=== PATIENT | female | born 1930 | race African-American/Black ===

== ENCOUNTER 2019-10-12 11:38 | Inpatient (IN) | payer OTHER ==
[2019-10-12 12:34] LABS: Basophils % 0.2 % (0-1.3); Lymphocytes % 11.6 % (15.3-44.8); MPV 8.7 fL (7.6-11.3); RBC Red Blood Cell Count 2.68 M/uL (3.86-4.86)
[2019-10-12 12:40] LABS: Protime INR 3.43
[2019-10-12 12:43] LABS: Hematocrit 15.5 % (36.0-45.0)
--- NOTE | 2019-10-12 12:50 | RAD REPORT ---
EXAM DESCRIPTION: RAD - Chest Single View - 10/12/2019 12:36 pm CLINICAL HISTORY: COUGH, leg pain and swelling COMPARISON: Two view chest June 17, 2019 TECHNIQUE: AP portable chest image was obtained 10/12/2019 12:36 pm . FINDINGS: Normal volume for portable imaging. Patient has a diffusely prominent interstitial pattern as a baseline. This is increased slightly from the comparison even when adjusting for portable versu s PA technique. Right pleural effusion and right base atelectasis are again noted. Cardiomegaly is pr esent. Vasculature is mildly prominent. No measurable pleural effusion and no pneumothorax. No acute bony abnormality seen. No acute aortic findings suspected. IMPRESSION: Chest findings suggest a mild failure or volume overload.
[2019-10-12 12:54] LABS: Albumin 2.6 g/dL (3.4-5.0); Bilirubin Total 1.6 mg/dL (0.2-1.0); Magnesium 2.2 mg/dL (1.8-2.4); Protein, Total 6.3 g/dL (6.4-8.2); Troponin (Emerg Dept Use Only) 0.07 ng/mL (0.0-0.045)
[2019-10-12 13:05] LABS: Anisocytosis 2+; Blood Morphology Comment NOTED (NOT SEEN); Platelet Estimate ADEQ; Urine White Blood Cell Casts OK
[2019-10-12 13:06] LABS: Hypochromasia 3+
[2019-10-12] MEDS ORDERED: PANTOPRAZOLE 40 MG INJ ONE ×2 (13:44→23:41)
[2019-10-12] MEDS ORDERED: PANTOPRAZOLE INJ 80 MG in NA CHLORIDE 0.9% 250 ML IV SCH (14:00)
[2019-10-12] MEDS: PANTOPRAZOLE INJ 80 MG in NA CHLORIDE 0.9% 250 ML IV SCH ×2 (14:00→23:41)
--- NOTE | 2019-10-12 14:12 | RAD REPORT ---
EXAM DESCRIPTION: US - Lower Extremity Arterial Bilat - 10/12/2019 1:31 pm CLINICAL HISTORY: PAIN, left leg pain COMPARISON: None. TECHNIQUE: Waveforms were obtained along the length of each lower extremity. Visual inspection of th e lower extremity arterial tree performed. FINDINGS: A dampened monophasic to biphasic waveform pattern was seen in the right common femoral ar rose marie. No blood flow was identifiable in the right superficial femoral artery stents and bypass. No ri ght popliteal artery blood flow was identifiable. No right posterior tibial artery blood flow could b e demonstrated. A significantly dampened monophasic waveform was identifiable in the right dorsalis p teresa artery. Dampened, monophasic left common femoral artery blood flow was seen. The left superficial femoral art kishor stent appears occluded as well with no blood flow identifiable. No left popliteal artery blood fl ow could be demonstrated. No dorsalis pedis or posterior tibial artery blood flow could be seen. IMPRESSION: Patient has substantially compromised lower extremity blood flow pattern. Bilateral dampened common femoral artery waveforms were identifiable. The bilateral superficial femor al, popliteal and posterior tibial arteries show no identifiable blood flow. Minimal blood flow seen in the right dorsalis pedis artery with no blood flow in the left dorsalis pedis demonstrated.
--- NOTE | 2019-10-12 14:23 | RAD REPORT ---
EXAM DESCRIPTION: CT - Abdomen Pelvis Wo Contrast - 10/12/2019 1:55 pm CLINICAL HISTORY: Abd pain;Pain Leg pain, history of left nephrectomy and arterial bypass COMPARISON: CT ABD PELVIS W CONTRAST dated 03/19/2013 TECHNIQUE: Axial [address] imaging of the abdomen and pelvis was performed without IV contrast. No IV contrast was given because of allergy, abnormal renal function, patient refusal or physician re quest. Oral contrast was given. All CT scans are performed using dose optimization technique as appropriate and may include automated exposure control or mA/KV adjustment according to patient size. FINDINGS: Moderate-size right pleural effusion is present only partially visualized. Heart size is u pper normal. No pericardial effusion. The liver, spleen and pancreas show no suspicious findings on non-contrast imaging. Multiple small ga llstones are present in a nondilated gallbladder. No biliary tree dilatation. No active gallbladder p rocess identifiable. No hydronephrosis or obstructing calculus of the right kidney. Assessment is limited in the absence o f IV contrast. No gross change from 2013. Left kidney has been resected since the prior study. No si gnificant adrenal finding. Isodense renal masses and pyelonephritis cannot be excluded in the absence of IV contrast. Partially filled urinary bladder shows no suspicious findings. Pelvic floor laxity i s present. No uterus or ovarian primary process identifiable. No gastric dilatation or wall thickening. No dilated small bowel. No appendicitis findings. Colon is distended 8 cm in the rectum. No wall thickening or mass. Left-sided diverticulosis present without d iverticulitis. No free air or pneumatosis. Stranding near the left nephrectomy site is not unexpected. Patient has significant fluid retention in the subcutaneous fatty tissues of the pelvis and lower abdomen. No he rnia, mass or bulky lymphadenopathy. Bony degenerative changes are present without an acute finding. Vascular assessment is limited in the absence of IV contrast. Aortobifemoral bypass is present. This cannot be assessed for patency due to the absence of contrast. Right-sided arterial stent and bypass are present at the right ENVIRONMENTAL SCIENCE PROFESSOR SFA junction. Both were shown to be occluded on separately reported ultr asound. The bypass is compressed within effaced lumen proximally. Left SFA stent was shown by sonogra phy to be occluded. IMPRESSION: Substantial vascular disease only partially assessed on this study. Patient has aortobif emoral bypass, bilateral SFA stents and a right SFA bypass. The leg vasculature was shown to be occlu ded or have highly restricted flow at sonography. The aortobifemoral bypass cannot be assessed in the absence of contrast. Significant fluid retention in the subcutaneous fatty tissues of the pelvis and lower abdomen. No surgically emergent finding to the solid abdominal visceral or bowel. Nonacute findings are detail ed in the body of the report. Moderate right-sided pleural effusion. Full assessment is limited is the absence of IV contrast.
--- OUTSIDE RECORDS SUMMARY | 2019-10-12 14:44 | XMS REPORT ---
:1930 Author Organization [facility] Address [address] [place] [address] Care Team Providers Name Role Phone Unavailable Unavailable Unavailable Problems This patient has no known problems. Allergies, Adverse Reactions, Alerts This patient has no known allergies or adverse reactions. Medications This patient has no known medications. Encounters Start End Encounter Admission Attending Care Care Encounter Date/Time Date/Time Type Type Clinicians Facility Department ID 2019-01-18 Outpatient [facility] [place] [id number] 16:10:34
--- NOTE | 2019-10-12 14:52 | ER ---
Nurse's Notes [facility] Name: Niharika Raymond Age: 89 yrs Sex: Female : 1930 Arrival Date: 10/12/2019 Time: 11:40 Bed 14 Private MD: Kaleb Soto V Diagnosis: Peripheral vascular disease, unspecified-bilateral extremities;Anemia, unspecified;Hypokalemia;Unspecified kidney failure;Unspecified combined systolic (congestive) and diastolic (congestive) heart failure;Pleural effusion in conditions classified elsewhere;Urinary tract infection, site not specified;Elevated white blood cell count Presentation: 10/11 11:35 Chief complaint: EMS states: Pt. 89 yrs. old c/o left leg pain. A \T\ O x 4. Edema noted rb1 to bilateral legs. History of CVA, left nephrectomy. Allergic to Lipitor. BS 143. Pt. took 2 Aleve two to three hours ago. EMS reports that pt. daughter reported that she has an ulcer on the left leg. Pt. lives in [place] [facility] [facility]. Coronavirus screen: Patient denies fever greater than 100.4F, cough, shortness of breath, or difficulty breathing. Ebola Screen: Patient negative for fever greater than or equal to 101.5 degrees Fahrenheit, and additional compatible Ebola Virus Disease symptoms. Initial Sepsis Screen: Does the patient meet any 2 criteria? No. Patient's initial sepsis screen is negative. Does the patient have a suspected source of infection? No. Patient's initial sepsis screen is negative. Risk Assessment: Do you want to hurt yourself or someone else? Patient reports no desire to harm self or others. 11:35 Method Of Arrival: EMS rb1 11:35 Acuity: LORETTA 3 rb1 Triage Assessment: 11:35 General: Appears in no apparent distress. comfortable, Behavior is calm, cooperative, rb1 Denies fever. Pain: Complains of pain in left leg Pain currently is 10 out of 10 on a pain scale. Pain began last night. Neuro: Level of Consciousness is awake, alert, obeys commands, Oriented to person, place, time, situation. Cardiovascular: Capillary refill < 3 seconds is brisk in bilateral fingers. Respiratory: Airway is patent Respiratory effort is even, unlabored, Respiratory pattern is regular, symmetrical. GI: No signs and/or symptoms were reported involving the gastrointestinal system. : No signs and/or symptoms were reported regarding the genitourinary system. Derm: Skin is dry, Skin is normal, Skin temperature is warm. Musculoskeletal: Swelling present in right leg and left leg. Historical: - Allergies: 11:35 Lipitor; rb1 - Home Meds: 11:35 hydralazine 100 mg Oral tab 1 tab 2 times per day [Active]; rosuvastatin 10 mg oral tab rb1 1 tab once daily [Active]; Xarelto 20 mg oral tab 1 tab once daily [Active]; furosemide 40 mg Oral tab 1 tab once daily [Active]; losartan 100 mg oral tab 1 tab once daily [Active]; metoprolol tartrate 50 mg Oral tab 1 tab once daily [Active]; - PMHx: 11:35 CVA; rb1 11:35 COPD; DVT; rb1 - PSHx: 11:35 kidney removal left; bypass; Tubal ligation; rb1 11:35 Thyroid surgery; stents in legs; rb1 - Immunization history:: Adult Immunizations up to date. - Social history:: Smoking status: Patient/guardian denies using. - Family history:: not pertinent. Screenin:35 Abuse screen: Denies threats or abuse. Nutritional screening: No deficits noted. rb1 Tuberculosis screening: No symptoms or risk factors identified. Fall Risk None identified. Assessment: 11:35 General: See triage assessment. rb1 14:31 Reassessment: Patient appears in no apparent distress at this time. Patient and/or rb1 family updated on plan of care and expected duration. Pain level reassessed. Patient is alert, oriented x 3, equal unlabored respirations, skin warm/dry/pink. 15:30 Reassessment: Patient appears in no apparent distress at this time. No changes from rb1 previously documented assessment. Pt. is laughing and joking with us. Call light within reach. 16:00 Reassessment: Initiated blood transfusion. rb1 16:25 Reassessment: Patient appears in no apparent distress at this time. Pt. denies chest rb1 pain, SOB, back pain, and itching. 16:50 Reassessment: Spoke with Shara, pt. daughter, via telephone at [phone]. She has rb1 POA, update her on the POC. Daughter verbalized understanding. 17:17 Reassessment: Patient appears in no apparent distress at this time. Patient and/or rb1 family updated on plan of care and expected duration. Pain level reassessed. Patient is alert, oriented x 3, equal unlabored respirations, skin warm/dry/pink. 17:42 Reassessment: Tried to call second floor, there was no answer. rb1 17:43 Reassessment: Tried to call ext. 1221 to give report, there was no answer. rb1 17:45 Reassessment: Called ext. 1241 to give report and there was no answer. rb1 17:46 Reassessment: Spoke to BETSY Lu on second floor, unable to give report at this time rb1 because she does not know who is getting the pt. She requested that I give her some time. 18:14 Reassessment: Patient appears in no apparent distress at this time. Patient and/or rb1 family updated on plan of care and expected duration. Pain level reassessed. Patient is alert, oriented x 3, equal unlabored respirations, skin warm/dry/pink. Pt. reports feeling better since receiving the blood. 18:17 Reassessment: Tried to call report, spoke to BETSY Lu, unable to give report at this rb1 time. Was told that HERRERA would call me back. 18:28 Reassessment: Gave report to BETSY SILVERMAN. Information from the SBAR was given. Informed him rb1 that the Potassium and Protonix drips would be sent to the floor with the pt, and the first unit of PRBC's would be finished before the pt. comes to the floor, but the pt. would be receiving two additional units of PRBC's. Verbalized understanding. Vital Signs: 11:35 BP 133 / 81; Pulse 70; Resp 17; Temp 98.4; Pulse Ox 98% on R/A; Weight 73.48 kg (R); rb1 Height 5 ft. 5 in. (165.10 cm) (R); Pain 10/10; 12:35 BP 129 / 69; Pulse 100; Resp 18; Pulse Ox 95% on R/A; rb1 14:33 BP 117 / 86; Pulse 91; Resp 17; Pulse Ox 99% on R/A; rb1 15:30 BP 118 / 56; Pulse 84; Resp 19; Pulse Ox 100% on R/A; rb1 15:55 BP 123 / 70; Pulse 90; Resp 19; Temp 98.2(TE); Pulse Ox 95% on R/A; rb1 16:05 BP 134 / 56; Pulse 78; Resp 19; Temp 98.2(TE); Pulse Ox 96% on R/A; Pain 0/10; rb1 16:10 BP 128 / 76; Pulse 92; Resp 18; Temp 98.2(TE); Pulse Ox 96% on R/A; rb1 16:15 BP 111 / 70; Pulse 89; Resp 17; Temp 98.2(TE); Pulse Ox 98% on R/A; Pain 0/10; rb1 17:15 BP 137 / 88; Pulse 90; Resp 14; Temp 98.0(TE); Pulse Ox 99% on R/A; rb1 18:15 BP 139 / 79; Pulse 101; Resp 20; Temp 98.0; Pulse Ox 98% on R/A; rb1 11:35 Body Mass Index 26.96 (73.48 kg, 165.10 cm) rb1 ED Course: 11:35 Arm band placed on right wrist. rb1 11:35 Patient has correct armband on for positive identification. Placed in gown. Bed in low rb1 position. Call light in reach. Side rails up X2. accounts receivable bookkeeper on. Pulse ox on. NIBP on. Warm blanket given. 11:40 Patient arrived in ED. bd 11:41 Tonio Graf MD is Attending Physician. arlene 11:43 Anum Jonas, RN is Primary Nurse. rb1 11:48 Triage completed. rb1 12:15 Missed attempt(s): 22 gauge in right antecubital area. kj1 12:24 Inserted saline lock: 22 gauge in left forearm, using aseptic technique. ,using aseptic kj1 technique. IV BY DERRELL WOODARD CHARGE NURSE Blood collected. 12:36 XRAY Chest (1 view) In Process Unspecified. EDMS 13:45 US LE Arterial Bilateral In Process Unspecified. EDMS 14:01 CT Abd/Pelvis - Without Contrast In Process Unspecified. EDMS 14:30 Urine collected: Santana catheter specimen, cloudy. kj1 14:48 Kaleb Soto MD is Hospitalizing Provider. arlene 15:24 Inserted saline lock: 22 gauge in left EJ, using aseptic technique. ,using aseptic rb1 technique. Inserted by Dr. Graf. Pt. tolerated well. 15:38 Kaleb Soto MD is Private Physician. am2 18:49 No provider procedures requiring assistance completed. Patient admitted, IV remains in rb1 place. Administered Medications: 14:19 Drug: ProTONIX 80 mg Route: IVP; Site: left forearm; rb1 14:30 Follow up: Response: No adverse reaction rb1 14:20 Drug: ProTONIX 8 mg/hr Route: IV; Rate: 25 ml/hr; Site: left forearm; rb1 14:30 Drug: Lasix 20 mg Route: IVP; Site: left forearm; rb1 14:45 Follow up: Response: No adverse reaction rb1 15:30 Drug: Zosyn 3.375 grams Route: IVPB; Infused Over: 60 mins; Site: left jugular; rb1 18:21 Drug: Potassium Chloride 20 mEq {Note: had to wait for an IV site to be available. Dr. stephenie Graf said to stop the Protonix drip and give the Potassium.} Route: IV; Rate: per protocol; Site: left forearm; Outcome: 14:51 Decision to Hospitalize by Provider. [facility] 18:49 Patient left the ED. rb1 18:49 Admitted to Med/surg accompanied by tech, via stretcher, room 214, with chart, Report rb1 called to BETSY SILVERMAN 18:49 Condition: stable 18:49 Instructed on the need for admit. Signatures: Dispatcher [employer] EDMS Ella Paz Corey, MD MD cha Barber, Rebecca, RN RN rb1 Jazmín Solorio am2 Natalya Franz kj1 Corrections: (The following items were deleted from the chart) 12:40 12:24 Inserted saline lock: 22 gauge in left forearm, using aseptic technique. Blood kj1 collected. kj1 12:41 12:24 Inserted saline lock: 22 gauge in left forearm, using aseptic technique. Blood kj1 collected. kj1 17:59 17:15 BP 137 / 88; Pulse 90bpm; Resp 14bpm; Pulse Ox 99% RA; rb1 rb1 19:05 18:55 Patient left the ED. rb1 rb1
--- NOTE | 2019-10-12 14:52 | EDPHYS ---
Physician Documentation [facility] Name: Niharika Raymond Age: 89 yrs Sex: Female : 1930 Arrival Date: 10/12/2019 Time: 11:40 Bed 14 Private MD: Kaleb Soto V ED Physician Tonio Graf HPI: 10/11 12:53 This 89 yrs old Black Female presents to ER via EMS with complaints of Leg Pain. arlene 12:56 The patient presents with decreased range of motion, pain. The complaints affect the arlene lateral aspect of left calf, left lateral ankle, lateral aspect of left foot, left morfin, anterior aspect of left ankle and dorsum of left foot. Context: The problem was sustained at an unknown site, resulted from an unknown cause. Associated signs and symptoms: The patient has no apparent associated signs or symptoms. Severity of symptoms: At their worst the symptoms were moderate, in the emergency department the symptoms are unchanged. Historical: - Allergies: 11:35 Lipitor; rb1 - Home Meds: 11:35 hydralazine 100 mg Oral tab 1 tab 2 times per day [Active]; rosuvastatin 10 mg oral tab rb1 1 tab once daily [Active]; Xarelto 20 mg oral tab 1 tab once daily [Active]; furosemide 40 mg Oral tab 1 tab once daily [Active]; losartan 100 mg oral tab 1 tab once daily [Active]; metoprolol tartrate 50 mg Oral tab 1 tab once daily [Active]; - PMHx: 11:35 CVA; rb1 11:35 COPD; DVT; rb1 - PSHx: 11:35 kidney removal left; bypass; Tubal ligation; rb1 11:35 Thyroid surgery; stents in legs; rb1 - Immunization history:: Adult Immunizations up to date. - Social history:: Smoking status: Patient/guardian denies using. - Family history:: not pertinent. ROS: 12:56 Constitutional: Negative for fever, chills, and weight loss, Eyes: Negative for injury, arlene pain, redness, and discharge, ENT: Negative for injury, pain, and discharge, Neck: Negative for injury, pain, and swelling, Cardiovascular: Negative for chest pain, palpitations, and edema, Respiratory: Negative for shortness of breath, cough, wheezing, and pleuritic chest pain, Abdomen/GI: Negative for abdominal pain, nausea, vomiting, diarrhea, and constipation, Back: Negative for injury and pain, : Negative for injury, bleeding, discharge, and swelling, Psych: Negative for depression, anxiety, suicide ideation, homicidal ideation, and hallucinations, Allergy/Immunology: Negative for hives, rash, and allergies, Endocrine: Negative for neck swelling, polydipsia, polyuria, polyphagia, and marked weight changes, Hematologic/Lymphatic: Negative for swollen nodes, abnormal bleeding, and unusual bruising. 12:56 Eyes: Positive for 12:56 MS/extremity: Positive for decreased range of motion, pain, swelling, of the right leg and left leg. 12:56 Skin: Positive for pallor. Exam: 12:59 Constitutional: This is a well developed, well nourished patient who is awake, alert, arlene and in no acute distress. Head/Face: Normocephalic, atraumatic. ENT: Nares patent. No nasal discharge, no septal abnormalities noted. Tympanic membranes are normal and external auditory canals are clear. Oropharynx with no redness, swelling, or masses, exudates, or evidence of obstruction, uvula midline. Mucous membranes moist. Neck: Trachea midline, no thyromegaly or masses palpated, and no cervical lymphadenopathy. Supple, full range of motion without nuchal rigidity, or vertebral point tenderness. No Meningismus. Chest/axilla: Normal chest wall appearance and motion. Nontender with no deformity. No lesions are appreciated. Cardiovascular: Regular rate and rhythm with a normal S1 and S2. No gallops, murmurs, or rubs. Normal PMI, no JVD. No pulse deficits. Respiratory: Lungs have equal breath sounds bilaterally, clear to auscultation and percussion. No rales, rhonchi or wheezes noted. No increased work of breathing, no retractions or nasal flaring. Abdomen/GI: Soft, non-tender, with normal bowel sounds. No distension or tympany. No guarding or rebound. No evidence of tenderness throughout. Back: No spinal tenderness. No costovertebral tenderness. Full range of motion. Skin: Warm, dry with normal turgor. Normal color with no rashes, no lesions, and no evidence of cellulitis. MS/ Extremity: Pulses equal, no cyanosis. Neurovascular intact. Full, normal range of motion. Neuro: Awake and alert, GCS 15, oriented to person, place, time, and situation. Cranial nerves II-XII grossly intact. Motor strength 5/5 in all extremities. Sensory grossly intact. Cerebellar exam normal. Normal gait. Psych: Awake, alert, with orientation to person, place and time. Behavior, mood, and affect are within normal limits. 12:59 Eyes: Conjunctiva: pale. 12:59 Musculoskeletal/extremity: ROM: limited active range of motion, limited passive range of motion, Compartment Syndrome exam of affected extremity: is normal. DVT Exam: negative Homans' sign noted on exam, no appreciated bluish discoloration, no erythema, no increased warmth, pain, swelling, tenderness. Vital Signs: 11:35 BP 133 / 81; Pulse 70; Resp 17; Temp 98.4; Pulse Ox 98% on R/A; Weight 73.48 kg (R); rb1 Height 5 ft. 5 in. (165.10 cm) (R); Pain 10/10; 12:35 BP 129 / 69; Pulse 100; Resp 18; Pulse Ox 95% on R/A; rb1 14:33 BP 117 / 86; Pulse 91; Resp 17; Pulse Ox 99% on R/A; rb1 15:30 BP 118 / 56; Pulse 84; Resp 19; Pulse Ox 100% on R/A; rb1 15:55 BP 123 / 70; Pulse 90; Resp 19; Temp 98.2(TE); Pulse Ox 95% on R/A; rb1 16:05 BP 134 / 56; Pulse 78; Resp 19; Temp 98.2(TE); Pulse Ox 96% on R/A; Pain 0/10; rb1 16:10 BP 128 / 76; Pulse 92; Resp 18; Temp 98.2(TE); Pulse Ox 96% on R/A; rb1 16:15 BP 111 / 70; Pulse 89; Resp 17; Temp 98.2(TE); Pulse Ox 98% on R/A; Pain 0/10; rb1 17:15 BP 137 / 88; Pulse 90; Resp 14; Temp 98.0(TE); Pulse Ox 99% on R/A; rb1 18:15 BP 139 / 79; Pulse 101; Resp 20; Temp 98.0; Pulse Ox 98% on R/A; rb1 11:35 Body Mass Index 26.96 (73.48 kg, 165.10 cm) rb1 MDM: 11:41 Patient medically screened. [facility] 13:00 Data reviewed: vital signs, nurses notes, lab test result(s), EKG, radiologic studies, arlene doppler, plain films. 10/11 12:09 Order name: Basic Metabolic Panel; Complete Time: 13:37 [facility] 10/11 12:09 Order name: CBC with Diff; Complete Time: 13:37 [facility] 10/11 12:09 Order name: LFT's; Complete Time: 13:37 [facility] 10/11 12:09 Order name: Magnesium; Complete Time: 13:37 [facility] 10/11 12:09 Order name: NT PRO-BNP; Complete Time: 13:37 [facility] 10/11 12:09 Order name: PT-INR; Complete Time: 12:52 [facility] 10/11 12:09 Order name: Troponin (emerg Dept Use Only); Complete Time: 13:37 [facility] 10/11 12:09 Order name: Urine Culture [facility] 10/11 12:09 Order name: Lipase; Complete Time: 13:37 [facility] 10/11 12:44 Order name: CBC Smear Scan; Complete Time: 13:37 [facility] 10/11 12:46 Order name: Type And Screen [facility] 10/11 12:52 Order name: Procalcitonin; Complete Time: 14:03 [facility] 10/11 14:41 Order name: Urine Dipstick--Ancillary (enter results) 10/11 15:03 Order name: Bb Add On bd 10/11 12:09 Order name: XRAY Chest (1 view) [facility] 10/11 12:09 Order name: EKG; Complete Time: 12:11 [facility] 10/11 12:09 Order name: Cardiac monitoring; Complete Time: 16:33 [facility] 10/11 12:09 Order name: EKG - Nurse/Tech; Complete Time: 16:33 [facility] 10/11 12:09 Order name: IV Saline Lock; Complete Time: 16:33 [facility] 10/11 12:09 Order name: Labs collected and sent; Complete Time: 16:33 [facility] 10/11 12:52 Order name: US LE Arterial Bilateral [facility] 10/11 13:39 Order name: CT Abd/Pelvis - Without Contrast [facility] 10/11 15:14 Order name: CONS Physician Consult [facility] 10/11 15:14 Order name: CONS Physician Consult [facility] 10/11 15:15 Order name: Packed RBCs (Additional Unit) [facility] 10/11 12:09 Order name: O2 Per Protocol; Complete Time: 16:33 [facility] 10/11 12:09 Order name: O2 Sat Monitoring; Complete Time: 16:33 [facility] 10/11 12:09 Order name: Urine Dipstick-Ancillary (obtain specimen); Complete Time: 16:33 [facility] 10/11 12:46 Order name: Transfuse; Complete Time: 16:33 [facility] 10/11 13:00 Order name: Wound Care; Complete Time: 14:22 [facility] 10/11 13:39 Order name: Santana; Complete Time: 14:30 [facility] Administered Medications: 14:19 Drug: ProTONIX 80 mg Route: IVP; Site: left forearm; rb1 14:30 Follow up: Response: No adverse reaction rb1 14:20 Drug: ProTONIX 8 mg/hr Route: IV; Rate: 25 ml/hr; Site: left forearm; rb1 14:30 Drug: Lasix 20 mg Route: IVP; Site: left forearm; rb1 14:45 Follow up: Response: No adverse reaction rb1 15:30 Drug: Zosyn 3.375 grams Route: IVPB; Infused Over: 60 mins; Site: left jugular; rb1 18:21 Drug: Potassium Chloride 20 mEq {Note: had to wait for an IV site to be available. Dr. stephenie Graf said to stop the Protonix drip and give the Potassium.} Route: IV; Rate: per protocol; Site: left forearm; Disposition: 10/12/19 14:51 Hospitalization ordered by Kaleb Soto for Inpatient Admission. Preliminary diagnosis are Peripheral vascular disease, unspecified - bilateral extremities, Anemia, unspecified, Hypokalemia, Unspecified kidney failure, Unspecified combined systolic (congestive) and diastolic (congestive) heart failure, Pleural effusion in conditions classified elsewhere, Urinary tract infection, site not specified, Elevated white blood cell count. - Bed requested for Telemetry/MedSurg (Inpatient). - Status is Inpatient Admission. rb1 - Condition is Fair. - Problem is new. - Symptoms have improved. Signatures: Dispatcher [employer] [facility] Ella Paz Corey, MD MD cha Barber, Rebecca, RN RN rb1 Corrections: (The following items were deleted from the chart) 17:30 14:51 Hospitalization Ordered by Kaleb Soto MD for Inpatient Admission. Preliminary bd diagnosis is Peripheral vascular disease, unspecified - bilateral extremities; Anemia, unspecified; Hypokalemia; Unspecified kidney failure; Unspecified combined systolic (congestive) and diastolic (congestive) heart failure; Pleural effusion in conditions classified elsewhere; Urinary tract infection, site not specified; Elevated white blood cell count. Bed requested for Telemetry/MedSurg (Inpatient). Status is Inpatient Admission. Condition is Fair. Problem is new. Symptoms have improved. arlene 18:55 17:30 10/12/2019 14:51 Hospitalization Ordered by Kaleb Soto MD for Inpatient rb1 Admission. Preliminary diagnosis is Peripheral vascular disease, unspecified - bilateral extremities; Anemia, unspecified; Hypokalemia; Unspecified kidney failure; Unspecified combined systolic (congestive) and diastolic (congestive) heart failure; Pleural effusion in conditions classified elsewhere; Urinary tract infection, site not specified; Elevated white blood cell count. Bed requested for Telemetry/MedSurg (Inpatient). Status is Inpatient Admission. Condition is Fair. Problem is new. Symptoms have improved. bd
[2019-10-12] MEDS ORDERED: FUROSEMIDE 20 MG/ 2ML VIAL ONE (15:24)
[2019-10-12] MEDS ORDERED: PIPER/TAZO/NS 3.375gm 3.375 GM/100 ML BAG ONE ×2 (15:24)
[2019-10-12] MEDS ORDERED: NA CHLORIDE 0.9% 250 ML ONE ×4 (15:48→23:41)
[2019-10-12] MEDS: PIPER/TAZO/NS 3.375gm 3.375 GM/100 ML BAG IVPB SCH (17:00)
[2019-10-12] MEDS ORDERED: KCL 20 MEQ/100 mL IVPB 20 MEQ/100 ML BAG IV ONE (18:25)
[2019-10-12] MEDS ORDERED: IPRATROPIUM BROM 0.5MG/2.5ML NEB PRN (19:46)
[2019-10-12] MEDS ORDERED: ONDANSETRON 4 MG/2 ML VIAL IV PRN (19:46)
[2019-10-12] MEDS ORDERED: ALBUTEROL 2.5 MG/3 ML NEB SOL NEB PRN (19:46)
[2019-10-12] MEDS ORDERED: ACETAMINOPHEN 500 MG TAB PO PRN (19:46)
[2019-10-12] MEDS ORDERED: FUROSEMIDE 20 MG/ 2ML VIAL IV SCH (20:00)
[2019-10-12] MEDS: MORPHINE 4 MG/ML SYR IV PRN (20:48)
--- NOTE | 2019-10-12 21:39 | P.HP ---
Certification for Inpatient Patient admitted to: Inpatient With expected LOS: >2 Midnights Practitioner: I am a practitioner with admitting privileges, knowledge of patient current condition, hospital course, and medical plan of care. Services: Services provided to patient in accordance with Admission requirements found in Title 42 Section 412.3 of the Code of Federal Regulations Patient History Date of Service: 10/12/19 Reason for admission: SEVERE WEAKNES History of Present Illness: MS HOLLINS HAS HAD WEAKNESS. WE ASKED FOR LAB IN JULY BUT SHE DID NOT DO. I ORDERED HOME HEALTH SHE WAS GETTIG WEAKER, THEY TRIED TO DO LAB I ORDERED BUT WERE NOT ABLE TO SHE WAS DEYDRATED, PATIENT WAS SENT TO ER AND FOUND TO HAVE HG OF 3.8 GM. SHE HAS BEEN ON XARELTO FOR DVT BUT HAS NOT DONE LAB LIKE ASKED TO DO. 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 SHE HAS PAIN FUL ULCER IN THE POSTERIOR PART OF L LE. Allergies atorvastatin calcium [From Lipitor] Adverse Reaction (Intermediate, Verified 19:24) ACHY, SWELLING Home Medications: Metoprolol Tartrate [Lopressor*] 50 mg PO DAILY 03/20/13 Furosemide [Lasix] 40 mg PO DAILY 03/11/18 Hydralazine HCl [Apresoline] 100 mg PO BID 03/11/18 Rosuvastatin Calcium [Crestor] 10 mg PO DAILY 03/11/18 Losartan Potassium 1 tab PO DAILY 10/12/19 Rivaroxaban [Xarelto] 1 tab PO DAILY 10/12/19 - Past Medical/Surgical History Has patient received pneumonia vaccine in the past: Yes Diabetic: No -: CVA -: HTN -: Hypothyroidism -: AFIB -: bilateral stents in legs -: Left Kidney removed 1979 -: bypass -: tonsillectomy -: tubal ligation - Family History Mother -: Other (see notes) Notes: heart attack - Social History Smoking Status: Never smoker Alcohol use: No CD- Drugs: No Caffeine use: Yes Place of Residence: Home Review of Systems 10-point ROS is otherwise unremarkable General: Weakness, Malaise Physical Examination - Vital Signs Temperature: 98.1 F Blood Pressure: 137/78 Pulse: 79 Respirations: 18 Pulse Ox (%): 94 - Physical Exam General: Alert, Cachectic, Moderate distress, Other (PALLOR) HEENT: Atraumatic, PERRLA, Mucous membr. moist/pink, EOMI, Sclerae nonicteric Neck: Supple, 2+ carotid pulse no bruit, No LAD, Without JVD or thyroid abnormality Respiratory: Clear to auscultation bilaterally, Normal air movement Cardiovascular: Abnormal pulses Gastrointestinal: Normal bowel sounds, No tenderness Musculoskeletal: No tenderness Integumentary: Arterial ulcer (L POSTERIOR LEG. NO INFECTION BUT DENUDED SKIN.) Neurological: Normal gait, Normal speech, Normal strength at 5/5 x4 extr, Normal tone, Normal affect Lymphatics: No axilla or inguinal lymphadenopathy - Studies Laboratory Data (last 24 hrs) 10/12/19 12:24: PT 39.5 H, INR 3.43 10/12/19 12:24: WBC 17.4 H, Hgb 3.9 L*, Hct 15.5 L*, Plt Count 283 10/12/19 12:24: Sodium 141, Potassium 3.0 L, BUN 47 H, Creatinine 1.49 H, Glucose 133 H, Magnesium 2.2, Total Bilirubin 1.6 H, AST 45 H, ALT 35, Alkaline Phosphatase 126 H, Lipase 104 Assessment and Plan - Problems (Diagnosis) (1) Anemia Current Visit: Yes Status: Acute Plan: SEVERE ANEMIA. 3 UNITS OF PACKED RBC. GOAL IS UP TO 7 GM. CONSULT GI . PAU CRISOSTOMO. THIS WAS GIVEN TO HER BY DOCTORS IN [place]. (2) Atherosclerosis of [place] arteries of right leg with ulceration of other part of foot Current Visit: No Status: Chronic Plan: SEVERE VASCUALR DAMAGE FROM HEAVY SMOKING. PVD ALL BELOW WAIST. MULTIPLE STENTS AND FEMPOP BYPASS. UNFORTUNATELY INCURABLE CODITION. IT IS TIME FOR COMFORT CARE. - Advance Directives Does patient have a Living Will: No Does patient have a Durable POA for Healthcare: Yes
[2019-10-12] MEDS: HYDRALAZINE HCL 25 MG TABLET PO SCH (23:40)
[2019-10-13] MEDS: PIPER/TAZO/NS 3.375gm 3.375 GM/100 ML BAG IVPB SCH ×3 (00:48→18:02)
[2019-10-13] MEDS ORDERED: PIPERACIL/TAZO 3.375 GM VIAL IV ONE (00:48)
[2019-10-13] MEDS ORDERED: NA CHLORIDE 0.9% 100 ML ONE ×2 (00:51→01:46)
[2019-10-13] MEDS ORDERED: NA CHLORIDE 0.9% 250 ML ONE (02:00)
[2019-10-13 07:59] LABS: Absolute Lymphocytes (CBC) 1.8 K/uL (0.7-4.9); Basophils % 0.1 % (0-1.3); Hematocrit 29.3 % (36.0-45.0); Lymphocytes % 12.4 % (15.3-44.8); MPV 8.8 fL (7.6-11.3); RBC Red Blood Cell Count 4.25 M/uL (3.86-4.86)
[2019-10-13 08:20] LABS: Potassium 2.8 mmol/L (3.5-5.1)
--- NOTE | 2019-10-13 08:35 | RAD REPORT ---
EXAM DESCRIPTION: RAD - Chest Single View - 10/13/2019 6:56 am CLINICAL HISTORY: Chest Pain Chest pain. COMPARISON: Chest Single View dated 10/12/2019; Chest Pa And Lat (2 Views) dated 06/17/2019; CHEST PA AND LAT 2 VIEW dated 12/15/2013; CHEST SINGLE VIEW dated 11/12/2013; Abdomen Pelvis Wo Contrast dated FINDINGS: Portable technique limits examination quality. Small bilateral pleural effusions are present, slightly greater the right. Mild opacity in the right lung base may represent atelectasis or infiltrate. The heart is mildly enlarged in size. Aortic ather osclerosis noted. IMPRESSION: Slight increase in right basilar lung opacity since comparative study probably represent ing infiltrate or atelectasis.
[2019-10-13] MEDS: KCL 20 MEQ/100 mL IVPB 20 MEQ/100 ML BAG IV SCH ×3 (08:49→13:02)
[2019-10-13] MEDS: LOSARTAN POTASSIUM 50 MG TABLET PO SCH (08:50)
[2019-10-13] MEDS: FUROSEMIDE 40 MG TABLET PO SCH (08:50)
[2019-10-13] MEDS: MORPHINE 4 MG/ML SYR IV PRN (08:51)
[2019-10-13] MEDS: METOPROLOL TAR 50 MG TAB PO SCH (08:51)
[2019-10-13] MEDS: HYDRALAZINE HCL 25 MG TABLET PO SCH ×2 (08:51→20:30)
[2019-10-13] MEDS: PANTOPRAZOLE INJ 80 MG in NA CHLORIDE 0.9% 250 ML IV SCH ×2 (11:09→20:00)
[2019-10-13] MEDS ORDERED: Ringers Lactate 1,000 ML IV ONE (13:49)
[2019-10-13] MEDS ORDERED: propofoL 200 MG/20 ML VIAL IV ONE (15:03)
[2019-10-13] MEDS ORDERED: EPINEPHRINE/PF 1 MG/ML AMP ONE (15:20)
--- NOTE | 2019-10-13 15:28 | EKG ---
Test Date: 2019-10-13 Test Time: 09:32:18 Travel Registered Nurse Oncology: ERIK MEASUREMENT RESULTS: Intervals: Rate: 97 MA: 122 QRSD: 78 QT: 350 QTc: 444 [place]: P: 35 MA: 122 QRS: 20 T: -78 INTERPRETIVE STATEMENTS: Sinus rhythm with premature supraventricular complexes with occasional premature ventricular complexes Anterior infarct, age undetermined ST & T wave abnormality, consider inferior ischemia Abnormal ECG Compared to ECG 10/12/2019 13:05:41 Atrial premature complex(es) now present Ventricular premature complex(es) now present ST (T wave) deviation now present Possible ischemia now present Atrial fibrillation no longer present Right-axis deviation no longer present Myocardial infarct finding still present Electronically Signed On 10-13-19 15:28:00 CDT by Ismael Johnson
--- NOTE | 2019-10-13 15:30 | EKG ---
Test Date: 2019-10-12 Test Time: 13:05:41 Stretcher Drier Operator: ERIK MEASUREMENT RESULTS: Intervals: Rate: 96 HI: QRSD: 82 QT: 358 QTc: 452 [place]: P: HI: QRS: 102 T: 269 INTERPRETIVE STATEMENTS: Atrial fibrillation Rightward axis Anterior infarct, age undetermined Abnormal ECG Compared to ECG 11/12/2013 22:28:47 Right-axis deviation now present Myocardial infarct finding now present Sinus rhythm no longer present ST (T wave) deviation no longer present Electronically Signed On 10-13-19 15:28:19 CDT by Ismael Johnson
--- NOTE | 2019-10-13 15:44 | OP ---
Surgeon: Jake Blandon MD Procedure To Be Performed: Esophagogastroduodenoscopy. Indications For Procedure: Severe anemia, on anticoagulation, suspected GI bleed. Plan For Anesthesia: Monitored anesthesia care. Complexity: High due to comorbidities and poor possibility of therapeutic intervention. Technique: After obtaining informed consent from the patient explaining risks and complications whic h include, but are not limited to, bleeding, infection, perforation, anesthesia complication, patient was placed in the left lateral position and sedation was given. From then on, the scope was advance d to the mouth and carefully guided up to the second portion of the duodenum. After the completion o f examination, scope and equipment were withdrawn and procedure terminated in a safe manner. Findings: Esophagus: The upper and mid esophagus appeared normal; however, in the distal esophagus, there was evidence of mild stenosis. This did not pose any resistance to the scope. Also seen was whitish plaques consistent with perez esophagitis in the distal portion. Stomach: In the antral region, multiple superficial gastric ulcers were visualized. Carefully small biopsies were taken. Retroflexion actually revealed some tears in the proximal stomach extending in to the esophagus. These tears thought of Sheila-Villa tear due to the consequence of retching. The re was some oozing from the margins. I did inject epi and put a clip. The bleeding did not seem to be profuse and actually had stopped by the end of the procedure. Duodenum: The bulb and second portion appeared normal. Complications: None. Tolerance To Anesthesia: Excellent. Postoperative Diagnoses: Esophageal stenosis with and perez esophagitis, Sheila-Villa tears exten ding into the stomach, superficial gastric ulcer. Plan: 1.Await pathology results. 2.IV PPI. 3.Fluconazole for the perez. 4.Given the tear in the proximal esophagus, I would err on the side of caution and get an abdominal x-ray just to rule out extraluminal air. If the x-ray is normal, patient can be started back on full liquid diet. This plan was communicated with Dr. Soto as well. US/MODL Voice ID: [id number] Report ID: [id number]
[2019-10-13] MEDS ORDERED: IPRATROPIUM BROM 0.5MG/2.5ML NEB PRN (16:00)
[2019-10-13] MEDS ORDERED: ALBUTEROL 2.5 MG/3 ML NEB SOL NEB PRN (16:00)
--- NOTE | 2019-10-13 16:15 | RAD REPORT ---
EXAM DESCRIPTION: RAD - Abdomen Single View - 10/13/2019 3:54 pm CLINICAL HISTORY: Abdominal pain FINDINGS: Frontal and cross-table lateral view obtained Free air within the abdomen is not seen. Air overlies the left side of the heart in a cylindrical appearance. This may represent air within a mildly dilated esophagus. If the patient's symptoms do not improve then CT would be recommended for further evaluation
[2019-10-13] MEDS: MORPHINE 2 MG/ML SYR IV PRN ×2 (17:06→21:48)
--- NOTE | 2019-10-13 17:34 | RAD REPORT ---
EXAM DESCRIPTION: [facility] Single View10/13/2019 5:24 pm CLINICAL HISTORY: Chest pain. Esophageal dilatation COMPARISON: October 12 FINDINGS: Small right pleural effusion is present. Lungs appear clear of acute infiltrate. The heart is mildly enlarged. Free air is not seen beneath the diaphragm . Right thyroid nodule mildly displaces the trachea towards the left. Pneumomediastinum is not seen on this exam
--- NOTE | 2019-10-13 19:11 | PN ---
Subjective: Ms. Raymond is doing a lot better. She is much more awake. Denies any chest pain, nause a, vomiting. Physical Examination: Vital Signs: Blood pressure 125/55, temperature 98.1. HEENT: No JVD. No carotid bruits. Chest: Clear. Decreased breath sounds heard bilaterally. Heart: Regular. Extremities: Leg examination bilateral, she has lack of pulse on the each DP and PT, and there are a rterial ulcers in the back of the left leg. Assessment And Plan: 1.Severe anemia. Hemoglobin is improved to 8.5 after 3 units of packed RBCs. Upper endoscopy showe d strictures in the esophagus, multiple ulcers, and also Sheila-Villa tear, but she did not have any kind of vomiting to report of. Dr. Blandon has managed this with putting clips in there. 2.Hypokalemia. Potassium protocol ongoing at this point. 3.Severe peripheral vascular disease. An inoperable vascular condition at this point. To me, I thi nk because of poor vascular condition, she will get worse. She will have more gangrenous changes in the legs, hopefully not for a while, but she does qualify for hospice care because of this end-stage condition. This will be discussed with patient's family when they are available. LULU/TRISHL Voice ID: [id number] Report ID: [id number]
--- NOTE | 2019-10-13 19:32 | CON ---
Date of Consultation: 10/13/2019 She was admitted to Dr. Soto on 10/12/2019. I saw the patient on 10/13/2019. Reason For Consultation: Peripheral arterial disease. History Of Present Illness: Ms. Raymond is an 89-year-old woman who has had a very complicated past m edical history, who came in with anemia with a hemoglobin of 3.9, requiring multiple blood transfusio ns. She had a creatinine of 1.49. Her INR was 3.43 on Xarelto that was held. She was hypokalemic. She has slightly elevated troponin and BNP. Main reason she came in was weakness. She was found on an arterial Doppler to have no significant blood flow in the superficial femoral artery bilaterally or the common femoral artery bilaterally. She has had an extensive peripheral vascular disease histo ry including a history of bilateral SFA stent. She has had a history of right fem-pop bypass and an aortobifemoral bypass. She complains of leg pain. She has felt better after her blood transfusions. Past Medical History: History of CVA, deep venous thrombosis for which she takes Xarelto, COPD, devin pheral arterial disease, hypertension, and dyslipidemia. Allergies: SHE IS ALLERGIC TO LIPITOR. Review of Systems: Negative. Social History: Negative. Family History: Noncontributory. Medications At Home: Crestor, Xarelto, Lasix, hydralazine, losartan, and metoprolol. Physical Examination: General: She appears her stated age. Vital Signs: She was in a sinus rhythm, afebrile. HEENT: Negative. Neck: Supple without any bruit, lymphadenopathy, JVD, or thyromegaly. Chest: Clear to auscultation and percussion. Cardiac: Regular rhythm and rate with an aortic sclerosis murmur. No gallops or rubs. Abdomen: Benign. Extremities: No clubbing or cyanosis. She had kind of diffuse erythema of the lower extremity. No palpable pulses in the dorsalis pedis or posterior tibial. Diagnostic Data: As stated earlier. Her chest x-ray shows a mild to moderate right-sided pleural ef fusion. EKG was nonspecific. Impression And Plan: Severe peripheral arterial disease. Patient is status post aortobifemoral bypa ss, a right femoropopliteal bypass, and a bilateral superficial femoral artery stent. The arterial D oppler was very abnormal, maybe may indicate distal aortic stenosis or bilateral common femoral arter y bypass stenosis. She is obviously not a candidate for now for any need for any intervention. Her hemoglobin is 3.9. We have a hemoglobin pending after the blood transfusion. She also has significa nt renal insufficiency. Her INR is still elevated at 3.43. She is hypokalemic. I prefer for now tr ansfusion, hydration, conservative therapy, hold the Xarelto. I will discuss further care with her a nd with Dr. Soto. If she recovers from what we just mentioned above, we will consider abdominal ang iogram with runoff later. I think Dr. Soto is considering hospice care. Her other problems include a history of cerebrovascular accident that is stable. Chronic obstructive pulmonary disease is stab le. Her hypertension and dyslipidemia seem to be well controlled. She has had a history of deep tanisha ous thrombosis and with her anemia, obviously we have to hold her Xarelto and maybe not restart it ag ain. I will continue to follow her. ERIK/RACHEL Voice ID: [id number] Report ID: [id number]
[2019-10-13 20:14] LABS: MPV 9.2 fL (7.6-11.3)
[2019-10-13 20:16] LABS: Platelet Estimate ND
[2019-10-13] MEDS: FLUCONAZOLE 200mg IVPB 200 MG/100 ML BAG IV SCH (20:29)
[2019-10-13] MEDS: ROSUVASTATIN 10 MG TAB PO SCH (20:36)
[2019-10-14] MEDS: PIPER/TAZO/NS 3.375gm 3.375 GM/100 ML BAG IVPB SCH ×3 (00:21→18:17)
[2019-10-14] MEDS: PANTOPRAZOLE INJ 80 MG in NA CHLORIDE 0.9% 250 ML IV SCH ×3 (00:28→18:35)
[2019-10-14 05:47] LABS: Potassium 3.3 mmol/L (3.5-5.1)
[2019-10-14] MEDS ORDERED: POTASSIUM CL SA 10 MEQ TAB PO ONE ×2 (09:00→21:00)
[2019-10-14] MEDS: HYDRALAZINE HCL 25 MG TABLET PO SCH ×2 (09:10→20:44)
[2019-10-14] MEDS: LOSARTAN POTASSIUM 50 MG TABLET PO SCH (09:10)
[2019-10-14] MEDS: METOPROLOL TAR 50 MG TAB PO SCH (09:11)
[2019-10-14] MEDS: FUROSEMIDE 40 MG TABLET PO SCH (09:11)
[2019-10-14] MEDS: MORPHINE 2 MG/ML SYR IV PRN ×2 (09:12→19:18)
[2019-10-14 09:48] VITALS: BMI 25.7
[2019-10-14 10:48] LABS: Absolute Lymphocytes (CBC) 0.6 K/uL (0.7-4.9); Basophils % 0.3 % (0-1.3); Hematocrit 28.2 % (36.0-45.0); Lymphocytes % 4.2 % (15.3-44.8); MPV 8.8 fL (7.6-11.3); RBC Red Blood Cell Count 4.02 M/uL (3.86-4.86)
[2019-10-14 12:20] LABS: Anisocytosis 3+; Blood Morphology Comment NOTED (NOT SEEN); Hypochromasia 3+; Ovalocytes 1+; Platelet Estimate ADEQ; Polychromasia 2+
--- NOTE | 2019-10-14 12:46 | PN ---
Ms. Raymond was admitted with severe peripheral arterial disease, severe anemia, less than 4 hemoglobi n. She has an extensive peripheral arterial disease history. She had also elevated creatinine consi stent with acute kidney injury. She received multiple blood transfusions yesterday. Her last hemogl obin was 8.5. Her creatinine was 1.16. Her pain in her legs have resolved. She continues to be hyd rated. She is fairly asymptomatic today. I will leave the decision up to Dr. Soto. Depending how she feels, she can certainly go home. We will see her as an outpatient. She has seen Dr. Zimmer in the past in my office. Once she is stabilized and her creatinine is stabilized and her hemoglobin is stabilized, then we will consider an abdominal angiogram with runoff to evaluate her peripheral ashtyn rial disease anatomy. Dr. Soto was discussing hospice care with the family invasive stud ies. For now, I will sign off her case. ERIK/RACHEL Voice ID: [id number] Report ID: [id number]
[2019-10-14] MEDS: FLUCONAZOLE 200mg IVPB 200 MG/100 ML BAG IV SCH (20:43)
[2019-10-14] MEDS: ROSUVASTATIN 10 MG TAB PO SCH (20:43)
[2019-10-15] MEDS: PIPER/TAZO/NS 3.375gm 3.375 GM/100 ML BAG IVPB SCH ×2 (00:32→09:04)
[2019-10-15] MEDS: PANTOPRAZOLE INJ 80 MG in NA CHLORIDE 0.9% 250 ML IV SCH ×2 (01:51→11:53)
[2019-10-15 06:10] LABS: Absolute Lymphocytes (CBC) 1.8 K/uL (0.7-4.9); Basophils % 0.5 % (0-1.3); Hematocrit 27.8 % (36.0-45.0); Lymphocytes % 10.8 % (15.3-44.8); RBC Red Blood Cell Count 3.99 M/uL (3.86-4.86)
[2019-10-15 06:29] LABS: Potassium 3.5 mmol/L (3.5-5.1)
[2019-10-15 07:58] LABS: Anisocytosis 2+; Blood Morphology Comment NOTED (NOT SEEN); Elliptocytes 1+; Hypochromasia 1+; Macrocytosis SLIGHT; Platelet Estimate ADEQ; Poikilocytosis 1+
[2019-10-15] MEDS ORDERED: POTASSIUM CL SA 10 MEQ TAB PO ONE (09:00)
[2019-10-15] MEDS: LOSARTAN POTASSIUM 50 MG TABLET PO SCH (09:01)
[2019-10-15] MEDS: HYDRALAZINE HCL 25 MG TABLET PO SCH (09:02)
[2019-10-15] MEDS: METOPROLOL TAR 50 MG TAB PO SCH (09:02)
[2019-10-15] MEDS: FUROSEMIDE 40 MG TABLET PO SCH (09:02)
[2019-10-15 09:08] VITALS: BP 125/61
[2019-10-15] MEDS: MORPHINE 2 MG/ML SYR IV PRN (10:06)
[2019-10-15 10:16] VITALS: TEMP 98
[2019-10-15 10:31] VITALS: O2SAT 95
--- NOTE | 2019-10-15 12:19 | P.PN ---
Subjective Date of Service: 10/14/19 Chief Complaint: SEVERE WEAKNES Subjective: Improving SHE IS STABLE TO BE DISCHARGED. I DISCHARGED HER BUT FAMILY WAS NOT ABLE TO PICK HER UP. [facility] IS NOT READY FOR HOME. SHE DID NOT HAVE TO STAY FOR EQUIPMENT TO COME BUT IN ANY CASE DISCHARGE DELAYED FROM ABOVE REASONS. Physical Examination - Vital Signs Temperature: 98.0 F Blood Pressure: 125/61 Pulse: 95 Respirations: 19 Pulse Ox (%): 94 Assessment And Plan - Current Problems (Diagnosis) (1) Anemia Current Visit: Yes Status: Acute Plan: SEVERE ANEMIA. 3 UNITS OF PACKED RBC. GOAL IS UP TO 7 GM. CONSULT GI . PAU CRISOSTOMO. THIS WAS GIVEN TO HER BY DOCTORS IN [place]. (2) Atherosclerosis of [place] arteries of right leg with ulceration of other part of foot Current Visit: No Status: Chronic Plan: SEVERE VASCUALR DAMAGE FROM HEAVY SMOKING. PVD ALL BELOW WAIST. MULTIPLE STENTS AND FEMPOP BYPASS. UNFORTUNATELY INCURABLE CODITION. IT IS TIME FOR COMFORT CARE.
--- NOTE | 2019-10-15 12:20 | P.DS ---
Admission Date: 10/12/19 Discharge Date: 10/15/19 Disposition: ROUTINE DISCHARGE Discharge Condition: SERIOUS Reason for Admission: SEVERE WEAKNES - Problems (1) Anemia Current Visit: Yes Status: Acute (2) Atherosclerosis of [place] arteries of right leg with ulceration of other part of foot Current Visit: No Status: Chronic Brief History of Present Illness: MS HOLLINS HAS HAD WEAKNESS. WE ASKED FOR LAB IN JULY BUT SHE DID NOT DO. I ORDERED HOME HEALTH SHE WAS GETTIG WEAKER, THEY TRIED TO DO LAB I ORDERED BUT WERE NOT ABLE TO SHE WAS DEYDRATED, PATIENT WAS SENT TO ER AND FOUND TO HAVE HG OF 3.8 GM. SHE HAS BEEN ON XARELTO FOR DVT BUT HAS NOT DONE LAB LIKE ASKED TO DO. 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 SHE HAS PAIN FUL ULCER IN THE POSTERIOR PART OF L LE. Hospital Course: MS. HOLLINS HAS SEVERE ASCVD WITH PREGANGERNOUS STATUS OF L LEG. HEAVY SMOKING HAS DONE THE DAMAGE. SHE WILL BE ON HOSPICE. FAMILY HAS CHOSEN [employer] MEMBER WORKS FOR [employer]. NOW ON HER TOTAL CARE WILL BE PROVIDED BY [employer] [facility] RELATED DOCTOR. Vital Signs/Physical Exam: Temp Pulse Resp BP Pulse Ox 98.0 F 95 H 19 125/61 94 10/15/19 12:18 10/15/19 12:18 10/15/19 12:18 10/15/19 12:18 10/15/19 12:18 Laboratory Data at Discharge: WBC 17.0 K/uL (4.3-10.9) H D 10/15/19 05:50 Hgb 8.1 g/dL (12.0-15.0) L 10/15/19 05:50 Hct 27.8 % (36.0-45.0) L 10/15/19 05:50 Plt Count 143 K/uL (152-406) L 10/15/19 05:50 PT 39.5 SECONDS (9.5-12.5) H 10/12/19 12:24 INR 3.43 10/12/19 12:24 Sodium 147 mmol/L (136-145) H 10/15/19 05:50 Potassium 3.5 mmol/L (3.5-5.1) 10/15/19 05:50 BUN 25 mg/dL (7-18) H 10/15/19 05:50 Creatinine 1.11 mg/dL (0.55-1.3) 10/15/19 05:50 Glucose 81 mg/dL (74-106) 10/15/19 05:50 Magnesium 2.2 mg/dL (1.8-2.4) 10/12/19 12:24 Total Bilirubin 1.6 mg/dL (0.2-1.0) H 10/12/19 12:24 AST 45 U/L (15-37) H 10/12/19 12:24 ALT 35 U/L (12-78) 10/12/19 12:24 Alkaline Phosphatase 126 U/L (45-117) H 10/12/19 12:24 Troponin I 0.08 ng/mL (0.0-0.045) H 10/13/19 00:20 Lipase 104 U/L (73-393) 10/12/19 12:24 Home Medications: Metoprolol Tartrate [Lopressor*] 50 mg PO DAILY 03/20/13 Hydralazine HCl [Apresoline] 100 mg PO BID 03/11/18 Rosuvastatin Calcium [Crestor] 10 mg PO DAILY 03/11/18 Losartan Potassium 1 tab PO DAILY 10/12/19 Cefuroxime [Ceftin] 250 mg PO BID #20 tab 10/14/19 New Medications: Cefuroxime [Ceftin] 250 mg PO BID #20 tab Followup: Kaleb Soto MD [Primary Care Provider] - Jake Blandon MD [ACTIVE - CAN ADMIT] -
== END 2019-10-15 13:59 | disposition home or self-care (01) | DRG 369 ==
LOC: ER 11:38 → ERHOLD 14:55 → 2ND 18:45
PROVIDERS: ADMIT Internal Medicine; ATTEND Internal Medicine
PROC: 0DB78ZX Excision of Stomach, Pylorus, Via Natural or Artificial Opening Endoscopic, Diagnostic (ICD-10-PCS; principal; 2019-10-13 14:30)
PROC: 30233N1 Transfusion of Nonautologous Red Blood Cells into Peripheral Vein, Percutaneous Approach (ICD-10-PCS; 2019-10-14)
DX: K22.6 Gastro-esophageal laceration-hemorrhage syndrome (principal); R64 Cachexia; D62 Acute posthemorrhagic anemia; I48.11 Longstanding persistent atrial fibrillation; K22.2 Esophageal obstruction; K25.4 Chronic or unspecified gastric ulcer with hemorrhage; I70.235 Atherosclerosis of native arteries of right leg with ulceration of other part of foot; Z79.01 Long term (current) use of anticoagulants; F17.200 Nicotine dependence, unspecified, uncomplicated; Z88.8 Allergy status to other drugs, medicaments and biological substances; Z79.899 Other long term (current) drug therapy; Z86.73 Personal history of transient ischemic attack (TIA), and cerebral infarction without residual deficits; I10 Essential (primary) hypertension; Z90.5 Acquired absence of kidney; Z98.51 Tubal ligation status; Z68.26 Body mass index [BMI] 26.0-26.9, adult; L97.519 Non-pressure chronic ulcer of other part of right foot with unspecified severity; Z95.820 Peripheral vascular angioplasty status with implants and grafts; J44.9 Chronic obstructive pulmonary disease, unspecified; Z86.718 Personal history of other venous thrombosis and embolism; E87.6 Hypokalemia; E78.5 Hyperlipidemia, unspecified; E86.0 Dehydration
CPT/HCPCS: 36415; 71045; 74018; 74176; 80048; 80076; 83690; 83735; 83880; 84132; 84145; 84484; 85025; 85049; 85610; 86850; 86900; 86901; 87077; 87086; 87088; 87186; 88305; 88312; 93005; 93925; 99285; C9113; J0171; J1450; J1940; J2270; J2543; J2704; J7030; J7120; P9016